=== PATIENT | female | born 1980 | race African-American/Black ===

== ENCOUNTER 2016-08-21 12:32 | Emergency (ER) | payer MEDICAID ==
[~2016-08-21] VITALS: Ht 154.9 cm; Wt 90.5 kg
[2016-08-21 13:19] LABS: APPEARANCE,URINE CLEAR (CLEAR); GLUCOSE, URINE (UA) NEGATIVE (NEGATIVE); KETONES,URINE NEGATIVE (NEGATIVE); LEUKOCYTE ESTERASE ,URINE NEGATIVE (NEGATIVE); PH,URINE 6.5 (5.0-8.0); PROTEIN,URINE NEGATIVE (NEGATIVE)
[2016-08-21 13:36] LABS: OCCULT BLOOD,URINE MODERATE (NEGATIVE)
[2016-08-21 13:37] LABS: ADD UA MICROSCOPIC YES; SQUAMOUS EPITHELIAL CELL,UR Few /LPF (None Seen); WBC,URINE 0-2 /HPF (0-5)
[2016-08-21 14:53] LABS: BASOPHILS % (AUTO) 0.5 % (0.0-2.0); EOSINOPHILS % (AUTO) 1.3 % (1.0-6.0); HEMATOCRIT 30.3 % (36-46); HEMOGLOBIN 9.3 g/dL (12.0-16.0); LYMPHOCYTES # (AUTO) 2.1 K/uL (1.0-4.8); LYMPHOCYTES % (AUTO) 28.4 % (22.0-44.0); MEAN CORPUSCULAR HEMOGLOBIN 21.9 pg (26.0-34.0); MEAN CORPUSCULAR HGB CONC 30.8 G/dL (31.0-37.0); MEAN CORPUSCULAR VOLUME 71 fL (80-100); MONOCYTES # (AUTO) 0.5 K/uL (0.1-1.0); MONOCYTES % (AUTO) 6.5 % (2.0-9.0); NEUTROPHILS # (AUTO) 4.8 K/uL (1.8-7.7); NEUTROPHILS % (AUTO) 63.3 % (40.0-70.0); PLATELET COUNT (AUTO) 355 K/uL (150-450); RED BLOOD CELL COUNT(AUTO) 4.25 MIL/uL (4.00-5.20); RED CELL DISTRIBUTION WIDTH 17.9 % (11.5-14.5); WHITE BLOOD COUNT (AUTO) 7.6 K/uL (4.5-11.0)
[2016-08-21 15:38] LABS: RBC MORPHOLOGY COMMENT ABNORMAL RBC MORPH
[2016-08-21 15:55] VITALS: BP 133/94
== END 2016-08-21 16:27 | disposition home or self-care (01) ==
LOC: EMS 12:33
DX: N93.8 Other specified abnormal uterine and vaginal bleeding (principal); I10 Essential (primary) hypertension
CPT/HCPCS: 99284

== ENCOUNTER 2016-11-06 11:53 | Emergency (ER) | payer MEDICAID ==
[~2016-11-06] VITALS: Ht 154.9 cm; Wt 88.6 kg
[2016-11-06 14:30] VITALS: BP 159/90
[2016-11-06] MEDS ORDERED: IBUPROFEN 800 MG TABLET PO ONE (15:00)
== END 2016-11-06 15:27 | disposition home or self-care (01) ==
LOC: EMS 11:54
DX: H60.91 Unspecified otitis externa, right ear (principal); I10 Essential (primary) hypertension; Z91.018 Allergy to other foods
CPT/HCPCS: 99283

== ENCOUNTER 2016-11-25 11:34 | Emergency (ER) | payer MEDICAID ==
[~2016-11-25] VITALS: Ht 154.9 cm; Wt 86.0 kg
[2016-11-25 13:15] LABS: EOSINOPHILS % (AUTO) 0.2 % (1.0-6.0); HEMATOCRIT 27.8 % (36-46); HEMOGLOBIN 8.1 g/dL (12.0-16.0); LYMPHOCYTES # (AUTO) 2.3 K/uL (1.0-4.8); LYMPHOCYTES % (AUTO) 31.5 % (22.0-44.0); MEAN CORPUSCULAR HEMOGLOBIN 19.3 pg (26.0-34.0); MEAN CORPUSCULAR HGB CONC 29.2 G/dL (31.0-37.0); MEAN CORPUSCULAR VOLUME 66 fL (80-100); MONOCYTES % (AUTO) 14.2 % (2.0-9.0); NEUTROPHILS # (AUTO) 3.9 K/uL (1.8-7.7); NEUTROPHILS % (AUTO) 54.1 % (40.0-70.0); PLATELET COUNT (AUTO) 331 K/uL (150-450); RED CELL DISTRIBUTION WIDTH 18.3 % (11.5-14.5); WHITE BLOOD COUNT (AUTO) 7.3 K/uL (4.5-11.0)
[2016-11-25 13:21] LABS: ANION GAP 9 mmol/L (8-16); CALCIUM, TOTAL 8.1 mg/dL (8.8-10.5); CARBON DIOXIDE 28 mmol/L (22-29); CHLORIDE 106 mmol/L (98-107); CREATININE 0.83 mg/dL (0.60-1.30); GLOMERULAR FILTR. RATE CALC > 60 mL/min (>60); SODIUM SERUM 143 mmol/L (136-145); UREA NITROGEN, BLOOD 7 mg/dL (7-18)
[2016-11-25 13:28] LABS: ALANINE AMINOTRANSFERASE 274 U/L (12-78); ALBUMIN 3.3 g/dL (3.4-5.0); ASPARTATE AMINOTRANSFERASE 311 U/L (15-37); BILIRUBIN,TOTAL 0.3 mg/dL (0.1-1.0); TOTAL PROTEIN, SERUM 7.2 g/dL (6.4-8.2)
[2016-11-25 13:38] LABS: RBC MORPHOLOGY COMMENT ABNORMAL RBC MORPH
[2016-11-25] MEDS ORDERED: ONDANSETRON HCL 4 MG/2 ML VIAL IVP ONE ×2 (15:15→16:45)
[2016-11-25] MEDS ORDERED: SODIUM CHLORIDE 0.9% 1,000 ML IV ONE (15:15)
[2016-11-25] MEDS ORDERED: PANTOPRAZOLE SODIUM 40 MG/VIAL IVP ONE (15:15)
[2016-11-25 16:15] VITALS: BP 128/74
[2016-11-25] MEDS ORDERED: MORPHINE SULFATE 4 MG/ML SYRINGE IVP ONE (16:45)
== END 2016-11-25 17:13 | disposition home or self-care (01) ==
LOC: EMS 11:38
DX: K80.20 Calculus of gallbladder without cholecystitis without obstruction (principal); D64.9 Anemia, unspecified; I10 Essential (primary) hypertension; Z91.018 Allergy to other foods
CPT/HCPCS: 36415; 76705; 80053; 83690; 84703; 85025; 96361; 96374; 96375; 99285; C9113; J2270; J2405; J7030

== ENCOUNTER 2016-12-01 12:27 | Inpatient (IN) | payer MEDICAID ==
[~2016-12-01] VITALS: Ht 157.5 cm; Wt 86.0 kg
[2016-12-01] MEDS ORDERED: IBUP-1546 PO (12:54)
[2016-12-01] MEDS ORDERED: HYDROmorphone 2 MG/ML SYRINGE IVP ONE (13:00)
[2016-12-01] MEDS ORDERED: SODIUM CHLORIDE 0.9% 1,000 ML IV ONE (13:00)
[2016-12-01] MEDS ORDERED: ONDANSETRON HCL 4 MG/2 ML VIAL IVP ONE (13:00)
[2016-12-01 13:19] LABS: HEMATOCRIT 26.9 % (36-46); HEMOGLOBIN 8.1 g/dL (12.0-16.0); MEAN CORPUSCULAR HEMOGLOBIN 19.8 pg (26.0-34.0); MEAN CORPUSCULAR HGB CONC 30.1 G/dL (31.0-37.0); MEAN CORPUSCULAR VOLUME 66 fL (80-100); PLATELET COUNT (AUTO) 500 K/uL (150-450); RED BLOOD CELL COUNT(AUTO) 4.09 MIL/uL (4.00-5.20); RED CELL DISTRIBUTION WIDTH 19.2 % (11.5-14.5); WHITE BLOOD COUNT (AUTO) 10.7 K/uL (4.5-11.0)
[2016-12-01 13:36] LABS: ALANINE AMINOTRANSFERASE 931 U/L (12-78); ALBUMIN 3.2 g/dL (3.4-5.0); ANION GAP 13 mmol/L (8-16); ASPARTATE AMINOTRANSFERASE 747 U/L (15-37); CALCIUM, TOTAL 8.6 mg/dL (8.8-10.5); CARBON DIOXIDE 27 mmol/L (22-29); CHLORIDE 100 mmol/L (98-107); CREATININE 0.96 mg/dL (0.60-1.30); GLOMERULAR FILTR. RATE CALC > 60 mL/min (>60); SODIUM SERUM 140 mmol/L (136-145); TOTAL PROTEIN, SERUM 7.7 g/dL (6.4-8.2); UREA NITROGEN, BLOOD 7 mg/dL (7-18)
[2016-12-01 13:40] LABS: POTASSIUM 2.8 mmol/L (3.5-5.1)
[2016-12-01 13:46] LABS: LYMPHOCYTES % (MANUAL) 40 % (22-44); REACTIVE LYMPHOCYTES 2 % (0-0); TOTAL CELLS COUNTED 100
[2016-12-01 13:51] LABS: RBC MORPHOLOGY COMMENT ABNORMAL R
[2016-12-01] MEDS ORDERED: POTASSIUM CHL 10 MEQ/WATER 50 ML IV ONE (14:30)
[2016-12-01] MEDS ORDERED: POTASSIUM CHL 40 MEQ/D5-0.45NS 1,000 ML IV ONE (15:15)
[2016-12-01] MEDS ORDERED: PIPERACILLIN/TAZO 3.375 GM/D5W 50 ML IV ONE (15:45)
[2016-12-01] MEDS ORDERED: 0.9% SODIUM CHLORIDE 10 ML SYRINGE IVP PRN (15:45)
[2016-12-01] MEDS ORDERED: ONDANSETRON HCL 4 MG/2 ML VIAL IVP PRN ×2 (15:45→21:15)
[2016-12-01] MEDS ORDERED: HYDROmorphone 2 MG/ML SYRINGE IVP PRN (15:45)
[2016-12-01] MEDS ORDERED: BISACODYL 10 MG RECTAL RECTAL SUPPOSITORY PR PRN (21:15)
[2016-12-01] MEDS ORDERED: MAGNESIUM HYDROXIDE SUSPENSION 30 ML UDCUP PO PRN (21:15)
[2016-12-01] MEDS ORDERED: ACETAMINOPHEN 325 MG TABLET PO PRN (21:15)
[2016-12-01] MEDS ORDERED: ZOLPIDEM TARTRATE 5 MG TABLET PO PRN (21:15)
[2016-12-01] MEDS: MetroNIDAZOLE 500 MG/NACL 100 ML IV SCH (22:15)
[2016-12-01] MEDS: CIPROFLOXACIN 400 MG/D5% WATER 200 ML IV SCH (22:15)
[2016-12-01] MEDS: SODIUM CHLORIDE 0.9% 1,000 ML IV SCH (22:16)
[2016-12-02] VITALS (7 sets, daily range): BP systolic 108–137; BP diastolic 65–79
[2016-12-02] MEDS: MORPHINE SULFATE 2 MG/ML SYRINGE IVP PRN ×2 (01:35→17:35)
[2016-12-02] MEDS: SODIUM CHLORIDE 0.9% 1,000 ML IV SCH (01:46)
[2016-12-02] MEDS: MetroNIDAZOLE 500 MG/NACL 100 ML IV SCH ×3 (07:42→23:10)
[2016-12-02] MEDS: HYDROCODONE/ACETAMINOPHEN 5-325 MG TABLET PO PRN ×2 (07:49→16:42)
[2016-12-02] MEDS: PANTOPRAZOLE SODIUM 40 MG DR TABLET PO SCH (09:44)
[2016-12-02] MEDS: CIPROFLOXACIN 400 MG/D5% WATER 200 ML IV SCH ×2 (09:44→21:12)
[2016-12-02 10:54] LABS: ANION GAP 8 mmol/L (8-16); CALCIUM, TOTAL 7.7 mg/dL (8.8-10.5); CARBON DIOXIDE 27 mmol/L (22-29); CHLORIDE 106 mmol/L (98-107); CREATININE 0.85 mg/dL (0.60-1.30); GLOMERULAR FILTR. RATE CALC > 60 mL/min (>60); POTASSIUM 3.3 mmol/L (3.5-5.1); SODIUM SERUM 141 mmol/L (136-145); UREA NITROGEN, BLOOD 4 mg/dL (7-18)
[2016-12-02] MEDS ORDERED: GADOBUTROL 1 MMOL/ML 10 ML VIAL IVP ONE (10:57)
[2016-12-02 13:18] LABS: ALANINE AMINOTRANSFERASE 592 U/L (12-78); ALBUMIN 2.6 g/dL (3.4-5.0); ASPARTATE AMINOTRANSFERASE 415 U/L (15-37); BILIRUBIN,TOTAL 3.6 mg/dL (0.1-1.0); TOTAL PROTEIN, SERUM 6.2 g/dL (6.4-8.2)
[2016-12-03] VITALS (13 sets, daily range): BP systolic 106–135; BP diastolic 49–83
[2016-12-03] MEDS: SODIUM CHLORIDE 0.9% 1,000 ML IV SCH (02:10)
[2016-12-03] MEDS: HYDROCODONE/ACETAMINOPHEN 5-325 MG TABLET PO PRN ×2 (05:08→19:51)
[2016-12-03] MEDS: MetroNIDAZOLE 500 MG/NACL 100 ML IV SCH ×2 (06:12→14:26)
[2016-12-03 07:04] LABS: ANION GAP 10 mmol/L (8-16); CARBON DIOXIDE 27 mmol/L (22-29); CHLORIDE 106 mmol/L (98-107); CREATININE 0.91 mg/dL (0.60-1.30); GLOMERULAR FILTR. RATE CALC > 60 mL/min (>60); POTASSIUM 3.3 mmol/L (3.5-5.1); SODIUM SERUM 143 mmol/L (136-145); UREA NITROGEN, BLOOD 5 mg/dL (7-18)
[2016-12-03] MEDS: PANTOPRAZOLE SODIUM 40 MG DR TABLET PO SCH (09:53)
[2016-12-03] MEDS: CIPROFLOXACIN 400 MG/D5% WATER 200 ML IV SCH ×2 (09:53→22:10)
[2016-12-03] MEDS ORDERED: POTASSIUM CHLORIDE 20 MEQ ER TABLET PO PRN (12:45)
[2016-12-03] MEDS ORDERED: POTASSIUM CHL 10 MEQ/WATER 50 ML IV PRN (12:45)
[2016-12-03 13:54] LABS: HEMATOCRIT 23.9 % (36-46); HEMOGLOBIN 7.1 g/dL (12.0-16.0); MEAN CORPUSCULAR HEMOGLOBIN 19.3 pg (26.0-34.0); MEAN CORPUSCULAR HGB CONC 29.5 G/dL (31.0-37.0); MEAN CORPUSCULAR VOLUME 65 fL (80-100); PLATELET COUNT (AUTO) 521 K/uL (150-450); RED BLOOD CELL COUNT(AUTO) 3.65 MIL/uL (4.00-5.20); WHITE BLOOD COUNT (AUTO) 9.5 K/uL (4.5-11.0)
[2016-12-03 14:03] LABS: ANION GAP 10 mmol/L (8-16); CALCIUM, TOTAL 8.2 mg/dL (8.8-10.5); CARBON DIOXIDE 28 mmol/L (22-29); CHLORIDE 104 mmol/L (98-107); CREATININE 0.89 mg/dL (0.60-1.30); GLOMERULAR FILTR. RATE CALC > 60 mL/min (>60); POTASSIUM 3.4 mmol/L (3.5-5.1); SODIUM SERUM 142 mmol/L (136-145); UREA NITROGEN, BLOOD 4 mg/dL (7-18)
[2016-12-03 14:09] LABS: ALANINE AMINOTRANSFERASE 490 U/L (12-78); ALBUMIN 2.9 g/dL (3.4-5.0); ASPARTATE AMINOTRANSFERASE 276 U/L (15-37); BILIRUBIN,TOTAL 2.4 mg/dL (0.1-1.0); TOTAL PROTEIN, SERUM 7.1 g/dL (6.4-8.2)
[2016-12-03 14:25] LABS: LYMPHOCYTES % (MANUAL) 22 % (22-44); TOTAL CELLS COUNTED 100
[2016-12-03 14:26] LABS: RBC MORPHOLOGY COMMENT ABNORMAL R
[2016-12-03] MEDS ORDERED: SODIUM CHLORIDE 0.9% 500 ML IV ONE (18:06)
[2016-12-04] MEDS: MetroNIDAZOLE 500 MG/NACL 100 ML IV SCH ×3 (00:29→15:13)
[2016-12-04 04:30] VITALS: BP 149/71
[2016-12-04] MEDS ORDERED: FentaNYL CITRATE-PF 100 MCG/2 ML VIAL IVP ONE (05:21)
[2016-12-04] MEDS ORDERED: ONDANSETRON HCL 4 MG/2 ML VIAL IVP ONE (05:21)
[2016-12-04] MEDS ORDERED: METOCLOPRAMIDE HCL 5 MG/ML 2 ML VIAL IVP ONE (05:21)
[2016-12-04] MEDS ORDERED: PHENYLEPHRINE HCL 10 MG/ML VIAL IVP ONE (05:21)
[2016-12-04] MEDS ORDERED: KETOROLAC TROMETHAMINE 60 MG/2 ML VIAL IM ONE (05:21)
[2016-12-04] MEDS ORDERED: NEOSTIGMINE METHYLSULFATE 1 MG/ML 10 ML VIAL IVP ONE (05:21)
[2016-12-04] MEDS ORDERED: LIDOCAINE HCL/PF 2% 5 ML VIAL IM ONE (05:21)
[2016-12-04] MEDS ORDERED: GLYCOPYRROLATE 0.2 MG/ML VIAL IM ONE (05:21)
[2016-12-04] MEDS ORDERED: MIDAZOLAM HCL 2 MG/2 ML VIAL IVP ONE (05:21)
[2016-12-04] MEDS ORDERED: PROPOFOL 1% 20 ML VIAL IVP ONE (05:21)
[2016-12-04] MEDS ORDERED: ROCURONIUM BROMIDE 10 MG/ML 5 ML VIAL IVP ONE (05:21)
[2016-12-04] MEDS ORDERED: DEXAMETHASONE SOD PHOS 4 MG/ML VIAL IVP ONE (05:21)
[2016-12-04] MEDS ORDERED: RINGERS SOLUTION,LACTATED 1,000 ML IV ONE ×3 (06:07→07:51)
[2016-12-04 06:29] LABS: HEMATOCRIT 26.6 % (36-46); HEMOGLOBIN 8.1 g/dL (12.0-16.0); MEAN CORPUSCULAR HEMOGLOBIN 20.7 pg (26.0-34.0); MEAN CORPUSCULAR HGB CONC 30.3 G/dL (31.0-37.0); MEAN CORPUSCULAR VOLUME 68 fL (80-100); PLATELET COUNT (AUTO) 533 K/uL (150-450); RED BLOOD CELL COUNT(AUTO) 3.89 MIL/uL (4.00-5.20)
[2016-12-04] MEDS ORDERED: IOHEXOL 240 MG/ML 20 ML VIAL ONE (06:33)
[2016-12-04] MEDS ORDERED: GUM MASTIC/STORAX/MSAL/ALCOHOL LIQUID 0.67 ML VIAL TP ONE (06:34)
[2016-12-04 06:45] LABS: LYMPHOCYTES % (MANUAL) 21 % (22-44); TOTAL CELLS COUNTED 100
[2016-12-04 06:46] LABS: RBC MORPHOLOGY COMMENT ABNORMAL R
[2016-12-04 06:58] LABS: ALANINE AMINOTRANSFERASE 399 U/L (12-78); ALBUMIN 2.7 g/dL (3.4-5.0); ANION GAP 12 mmol/L (8-16); ASPARTATE AMINOTRANSFERASE 201 U/L (15-37); BILIRUBIN,TOTAL 2.2 mg/dL (0.1-1.0); CARBON DIOXIDE 28 mmol/L (22-29); CHLORIDE 120 mmol/L (98-107); CREATININE 0.89 mg/dL (0.60-1.30); GLOMERULAR FILTR. RATE CALC > 60 mL/min (>60); SODIUM SERUM 160 mmol/L (136-145); TOTAL PROTEIN, SERUM 6.8 g/dL (6.4-8.2); UREA NITROGEN, BLOOD 3 mg/dL (7-18)
[2016-12-04] MEDS: BUPIVACAINE 0.25%/EPI 1:200,000/PF 10 ML VIAL ONE ×2 (07:20→07:29)
[2016-12-04] MEDS ORDERED: HYDROmorphone 2 MG/ML SYRINGE IVP PRN ×2 (07:45→08:45)
[2016-12-04] MEDS ORDERED: MEPERIDINE-PF 25 MG/ML SYRINGE IVP PRN (07:45)
[2016-12-04] MEDS ORDERED: FentaNYL CITRATE-PF 100 MCG/2 ML VIAL IVP PRN (07:45)
[2016-12-04] MEDS ORDERED: OXYGEN THERAPY IH SCH (08:00)
[2016-12-04] MEDS: SODIUM CHLORIDE 0.9% 1,000 ML IV SCH ×2 (08:38→12:15)
[2016-12-04] MEDS: PANTOPRAZOLE SODIUM 40 MG DR TABLET PO SCH (08:39)
[2016-12-04] MEDS ORDERED: MEPERIDINE-PF 25 MG/ML SYRINGE ONE (08:40)
[2016-12-04] MEDS ORDERED: HYDROCODONE/ACETAMINOPHEN 5-325 MG TABLET PO PRN (08:45)
[2016-12-04] MEDS ORDERED: KETOROLAC TROMETHAMINE 30 MG/ML VIAL IVP PRN (08:45)
[2016-12-04] MEDS ORDERED: HYDR-309 PO (09:37)
[2016-12-04] MEDS: CIPROFLOXACIN 400 MG/D5% WATER 200 ML IV SCH ×2 (10:39→22:10)
[2016-12-04 10:47] VITALS: BP 141/87
[2016-12-04] MEDS: HYDROCODONE/ACETAMINOPHEN 5-325 MG TABLET PO PRN (15:16)
[2016-12-04 15:40] VITALS: BP 143/75
[2016-12-04 19:45] LABS: ANION GAP 9 mmol/L (8-16); CALCIUM, TOTAL 8.4 mg/dL (8.8-10.5); CARBON DIOXIDE 27 mmol/L (22-29); CHLORIDE 104 mmol/L (98-107); CREATININE 0.89 mg/dL (0.60-1.30); GLOMERULAR FILTR. RATE CALC > 60 mL/min (>60); POTASSIUM 4.1 mmol/L (3.5-5.1); SODIUM SERUM 140 mmol/L (136-145); UREA NITROGEN, BLOOD 4 mg/dL (7-18)
[2016-12-04 19:50] LABS: ALANINE AMINOTRANSFERASE 378 U/L (12-78); ALBUMIN 2.9 g/dL (3.4-5.0); ASPARTATE AMINOTRANSFERASE 172 U/L (15-37); BILIRUBIN,TOTAL 1.8 mg/dL (0.1-1.0); TOTAL PROTEIN, SERUM 7.5 g/dL (6.4-8.2)
[2016-12-04 19:55] VITALS: BP 138/72
[2016-12-05 00:23] VITALS: BP 124/75
[2016-12-05] MEDS: HYDROCODONE/ACETAMINOPHEN 5-325 MG TABLET PO PRN ×2 (00:23→16:45)
[2016-12-05] MEDS: MetroNIDAZOLE 500 MG/NACL 100 ML IV SCH ×3 (00:23→14:16)
[2016-12-05 05:31] VITALS: BP 136/96
[2016-12-05 07:48] VITALS: BP 121/63
[2016-12-05] MEDS: CIPROFLOXACIN 400 MG/D5% WATER 200 ML IV SCH (07:55)
[2016-12-05] MEDS: PANTOPRAZOLE SODIUM 40 MG DR TABLET PO SCH (07:55)
[2016-12-05 11:43] VITALS: BP 113/71
[2016-12-05] MEDS: SODIUM CHLORIDE 0.9% 1,000 ML IV SCH (12:45)
[2016-12-05 15:54] VITALS: BP 104/70
== END 2016-12-05 18:30 | disposition home or self-care (01) | DRG 263 ==
LOC: EMS 12:29 → 6N 15:09
PROVIDERS: ADMIT Internal Medicine; ATTEND Internal Medicine
PROC: 30233N1 Transfusion of Nonautologous Red Blood Cells into Peripheral Vein, Percutaneous Approach (ICD-10-PCS; 2016-12-03)
PROC: BF131ZZ Fluoroscopy of Gallbladder and Bile Ducts using Low Osmolar Contrast (ICD-10-PCS; 2016-12-04)
PROC: 0FT44ZZ Resection of Gallbladder, Percutaneous Endoscopic Approach (ICD-10-PCS; principal; 2016-12-04 07:20)
DX: K80.66 Calculus of gallbladder and bile duct with acute and chronic cholecystitis without obstruction (principal); E87.5 Hyperkalemia; I10 Essential (primary) hypertension; E87.6 Hypokalemia; D64.9 Anemia, unspecified; D47.3 Essential (hemorrhagic) thrombocythemia; G89.29 Other chronic pain; R60.9 Edema, unspecified; Z91.02 Food additives allergy status
CPT/HCPCS: 72197; 74183; 74185; 76705; 84132; 86850; 86900; 86901; 86920; 87081; 88304; 96361; 96365; 96366; 96368; 96375; 99285; A9585; J0744; J1100; J1170; J1885; J2175; J2250; J2270; J2370; J2405; J2543; J2704; J2765; J3010; J3480; J3490; J7030; J7040; J7120; P9016; Q9966

== ENCOUNTER 2017-08-05 09:28 | Emergency (ER) | payer MEDICAID ==
[~2017-08-05] VITALS: Ht 162.6 cm; Wt 83.6 kg
[2017-08-05] VITALS (9 sets, daily range): BP systolic 113–145; BP diastolic 69–90
[~2017-08-05 09:28] MED LIST: HYDR-309 PO; IBUP-1506 PO
[2017-08-05 10:07] LABS: HEMOGLOBIN 7.3 g/dL (12.0-16.0); MEAN CORPUSCULAR HEMOGLOBIN 18.8 pg (26.0-34.0); MEAN CORPUSCULAR HGB CONC 29.3 G/dL (31.0-37.0); MEAN CORPUSCULAR VOLUME 64 fL (80-100); PLATELET COUNT (AUTO) 471 K/uL (150-450); RED CELL DISTRIBUTION WIDTH 20.4 % (11.5-14.5)
[2017-08-05 10:17] LABS: ANION GAP 9 mmol/L (8-16); CALCIUM, TOTAL 9.1 mg/dL (8.8-10.5); CARBON DIOXIDE 26 mmol/L (22-29); CHLORIDE 105 mmol/L (98-107); CREATININE 0.73 mg/dL (0.60-1.30); GLOMERULAR FILTR. RATE CALC > 60 mL/min (>60); GLUCOSE,RANDOM 96 mg/dL (70-110); POTASSIUM 3.4 mmol/L (3.5-5.1); SODIUM SERUM 140 mmol/L (136-145); UREA NITROGEN, BLOOD 16 mg/dL (7-18)
[2017-08-05 10:18] LABS: PROTHROMBIN TIME 10.4 SEC (9.4-11.6)
[2017-08-05 10:23] LABS: ALANINE AMINOTRANSFERASE 35 U/L (12-78); ALBUMIN 3.6 g/dL (3.4-5.0); ALKALINE PHOSPHATASE 87 U/L (46-116); ASPARTATE AMINOTRANSFERASE 25 U/L (15-37); BILIRUBIN,TOTAL 0.3 mg/dL (0.1-1.0); TOTAL PROTEIN, SERUM 7.8 g/dL (6.4-8.2)
[2017-08-05 10:37] LABS: EOSINOPHILS % (MANUAL) 1 % (1-6); LYMPHOCYTES % (MANUAL) 25 % (22-44); MONOCYTES % (MANUAL) 5 % (2-9); SEGMENTED NEUTROPHILS % 69 % (40-70)
== END 2017-08-05 15:34 | disposition home or self-care (01) ==
LOC: EMS 09:29
DX: D64.9 Anemia, unspecified (principal); I10 Essential (primary) hypertension; Z91.018 Allergy to other foods
CPT/HCPCS: 36415; 36430; 80053; 85025; 85610; 86850; 86900; 86901; 86920; 99285; P9016